=== PATIENT | female | born 1945 | race Caucasian/White ===

== ENCOUNTER → 2023-12-19 16:11 | Outpatient (REF) | payer MEDICARE, OTHER, SELFPAY | LOC: WDC 16:11 | PROVIDERS: ATTENDING PHYSICIAN Obstetrics & Gynecology; FAMILY PHYSICIAN Internal Medicine | DX: Z12.31 Encounter for screening mammogram for malignant neoplasm of breast (principal) | CPT/HCPCS: 77063; 77067 ==

== ENCOUNTER → 2025-01-20 17:20 | Outpatient (REF) | payer MEDICARE, OTHER, SELFPAY | LOC: WDC 17:20 | PROVIDERS: ATTENDING PHYSICIAN Obstetrics & Gynecology; FAMILY PHYSICIAN Internal Medicine | DX: Z12.31 Encounter for screening mammogram for malignant neoplasm of breast (principal) | CPT/HCPCS: 77063; 77067 ==